=== PATIENT | female | born 1965 | race Caucasian/White ===

== ENCOUNTER → 2017-06-03 | Outpatient (CLI) | payer BC ==
--- NOTE | ~2017-06-03 | CT55 ---
[facility] A Service of [facility] RADIOLOGY TEXT RESULTS PATIENT: MAXIME ROSAS LOCATION: [facility] : 63 UNIT #: [id number] AGE: [address]: Noemi Brandt SEX: F ORDER DR: [id number] [facility] [address] [place], [place] [address] [id number] MR#: [id number] Acc #: [id number] NAME: MAXIME ROSAS : 1965 SEX: F STUDY DATE/TIME: 06/03/2017 13:11 UNIT: [facility] ROOM: STUDY DESCRIPTION: CT Chest W Con Attending Physician: Noemi Brandt A.P.R.N. Referring Physician: Noemi Brandt A.P.R.N. Ordering Physician: Noemi Brandt A.P.R.N. Primary Care Physician: Catherine Maya A.P.R.N. MEDICAL IMAGING REPORT This report is preliminary unless electronic signature is present EXAM CT chest with contrast INDICATIONS Follow up pulmonary nodule PROCEDURE Contrast-enhanced CT chest. This CT exam was performed with one or more of the following radiation dose reduction techniques: automatic exposure control, adjustment of mA and/or kV according to patient size, and iterative reconstruction. COMPARISON 12/03/2016 FINDINGS 5 mm nodule right upper lobe unchanged. No dense consolidation or new nodule. No adenopathy. No acute findings in the included upper abdomen. No aggressive appearing bone lesion. IMPRESSION Stable 5 mm nodule right upper lobe. Correlate with patient's risk factors. If the patient has low risk factors. No additional followup is required. If patient has high risk factors a followup chest CT in six months is suggested. If this is stable at 12 months, no additional followup is required. Dictated by... Trenton Dior M.D. THIS IS AN ELECTRONICALLY VERIFIED REPORT Trenton Dior M.D. at 06/04/2017 3:29 PM EED/to [facility] A Service of [facility] RADIOLOGY TEXT RESULTS PATIENT: MAXIME ROSAS LOCATION: [facility] : 63 UNIT #: [id number] AGE: [address]: Noemi Brandt SEX: F ORDER DR: TD: 06/03/2017 17:53 JOB #: [id number] MEDICAL IMAGING REPORT Page 1 of 1 COPY
[2017-06-03 14:45] LABS: POC - CREATININE 0.63 mg/dL (0.44-1.03); POC - GFR >60.0 mL/min (>60)
== END | disposition home or self-care (01) ==
LOC: CCAT 12:43
PROVIDERS: Nurse Practitioner Adult Health
DX: R91.1 Solitary pulmonary nodule (principal); R07.89 Other chest pain
CPT/HCPCS: 71260; 82565; Q9967